=== PATIENT | female | born 1995 | race Caucasian/White ===

== ENCOUNTER 2020-11-05 00:09 | Emergency (ER) | payer SELFPAY ==
[2020-11-05] MEDS ORDERED: Cefdinir 300 MG Cap PO ONE (00:39)
[2020-11-05] MEDS ORDERED: Ondansetron 4 MG Tab.DIS PO ONE (01:02)
[2020-11-05] MEDS ORDERED: Phenazopyridine 200 MG Tab PO ONE (01:02)
--- NOTE | 2020-11-05 01:08 | EDM.PDOC ---
ED HPI GENERAL MEDICAL PROBLEM - General Chief Complaint: Genitourinary Problem Stated Complaint: POSSIBLE KIDNEY INFECTION Time Seen by Provider: 11/05/20 01:03 - History of Present Illness INITIAL COMMENTS - FREE TEXT/NARRATIVE: HISTORY AND PHYSICAL: History of present illness: This is a 25-year-old female with a history significant for kidney infection in the past presents ER today with signs symptoms similar to her prior urinary tract infections. Patient denies any recent fevers, shakes. Patient reports that she had an episode of a chills but no documented fever at that time. Patient denies any vomiting or diarrhea. Patient does complain of some nausea. Patient complains of dysuria frequency and urgency. Patient is currently on her menses. Patient denies any cough cold or rhinorrhea. Patient reports she is tolerating p.o. solids and liquids well. Patient reports that she started experiencing abdominal pain in the suprapubic region and she thought it was her typical pain from her menses however it is slowly migrated a bit closer to the left lower quadrant with the urinary symptoms. Review of systems: As per history of present illness and below otherwise all systems reviewed and negative. Past medical history: As per history of present illness and as reviewed below otherwise noncontributory. Surgical history: As per history of present illness and as reviewed below otherwise noncontributory. Social history: No reported history of drug abuse. Family history: As per history of present illness and as reviewed below otherwise noncontributory. Physical exam: This patient was seen and evaluated during the 2019 SARS-CoV-2 novel coronavirus pandemic period. Community viral transmission is ongoing at time of this encounter and the emergency department is operating under pandemic response procedures. Constitutional: Patient is oriented to person, place, and time. Appears well- developed and well-nourished. No distress. HEENT: Moist mucous membranes Head: Normocephalic and atraumatic Eyes: Right eye exhibits no discharge. Left eye exhibits no discharge. No scleral icterus Neck: Normal range of motion. No tracheal deviation present. Cardiovascular: Normal rate and regular rhythm. Pulmonary: Effort normal, no respiratory distress. Abd: Soft, nondistended, no rebound/guarding, no psoas or obturator signs, no tenderness at Mcberney's point, no Dial's sign. Pt does not present with an exam that would be consistent with an acute surgical abdomen at this time. Mild tenderness palpation left lower quadrant. Mild tenderness palpation left flank. Musculoskeletal: Normal range of motion Neurologic: Alert and oriented to person, place and time. Skin: [place], warm and dry. Psychiatric: Normal mood and affect. Behavior is normal. Judgment and thought content normal. Nursing note and vital signs have been reviewed Diagnostics: [] Therapeutics: Omnicef, Zofran, Pyridium Assessment and plan: 25-year-old female who presents ER today with signs and symptoms consistent with a likely urinary tract infection. I have discussed with the patient the possibility of kidney stone however her presentation is atypical for renal colic. Patient does not wish a CT scan at this time to avoid the radiation would prefer treatment with an antibiotic. We will start patient on Omnicef, Pyridium for discomfort as well as Zofran to help with nausea. Patient has t aken ibuprofen at home approximately 2 hours prior to arrival with some moderate relief. Patient is clinically and hemodynamically stable at this time for discharge to home with close outpatient follow-up. I have discussed with the patient that she does not start having improvement in her symptoms within 24 hours that she should return to the ER or go to her doctor for reevaluation and CT scan of her abdomen and pelvis to look at her kidneys. Reassessment at the time of disposition demonstrates that the patient is in no acute distress. The patient has remained stable throughout the entire ED visit and is without objective evidence for acute process requiring urgent intervention or hospitalization. The patient is stable for discharge, counseling is provided as documented above, discussed symptomatic treatment and specific conditions for return. I have spoken with the patient/caregiver and discussed todays findings, in addition to providing specific details for the plan of care. Questions are answered and there is agreement with the plan. Definitive disposition and diagnosis as appropriate pending reevaluation and review of above. Left Flank Pain Score (Numeric/FACES): 8 - Related Data Allergies Allergy/AdvReac Type Severity Reaction Status Date / Time Sulfa (Sulfonamide Allergy Swollen Verified 11/05/20 00:24 Antibiotics) Tongue Home Meds: Home Meds Cefdinir [Omnicef] 300 mg PO BID #14 cap 11/05/20 [Rx] Ibuprofen 600 mg PO Q6HR PRN #30 tablet 11/05/20 [Rx] Ondansetron [Zofran ODT] 4 mg PO Q6H PRN #12 tab.dis 11/05/20 [Rx] Phenazopyridine HCl [Pyridium] 200 mg PO TID #9 tablet 11/05/20 [Rx] Social & Family History - Tobacco Use Tobacco Use Status *Q: Never Tobacco User Second Hand Smoke Exposure: No - Recreational Drug Use Recreational Drug Use: No ED ROS GENERAL - Review of Systems Review Of Systems: See Below ED EXAM, GENERAL - Physical Exam Exam: See Below Course - Vital Signs Last Recorded V/S: Last Vital Signs Temp 96.8 F L 11/05/20 00:17 Pulse 90 11/05/20 00:17 Resp 16 11/05/20 00:17 BP 123/72 11/05/20 00:17 Pulse Ox 78 L 11/05/20 00:17 - Orders/Labs/Meds Orders: Active Orders 24 hr Category Date Time Status Ondansetron [Zofran ODT] Med 11/05/20 01:02 Once 4 mg PO ONETIME ONE Phenazopyridine [Pyridium] Med 11/05/20 01:02 Once 200 mg PO ONETIME ONE Labs: Laboratory Tests 11/05/20 11/05/20 Range/Units 00:20 00:20 Urine Color YELLOW Urine Appearance SLT CLOUDY Urine pH 6.0 (5.0-8.0) Ur Specific [place] <= 1.005 (1.001-1.035) Urine Protein NEGATIVE (NEGATIVE) mg/dL Urine Glucose (UA) NEGATIVE (NEGATIVE) mg/dL Urine Ketones NEGATIVE (NEGATIVE) mg/dL Urine Occult Blood LARGE H (NEGATIVE) Urine Nitrite NEGATIVE (NEGATIVE) Urine Bilirubin NEGATIVE (NEGATIVE) Urine Urobilinogen 0.2 (<2.0) EU/dL Ur Leukocyte Esterase LARGE H (NEGATIVE) Urine RBC 1-3 (0-2/HPF) Urine WBC 10-12 (0-5/HPF) Ur Epithelial Cells RARE (NONE-FEW) Urine Bacteria RARE (NEGATIVE) Urine HCG, Qual NEGATIVE (NEGATIVE) Meds: Medications Discontinued Medications Generic Name Dose Route Start Last Admin Trade Name Freq PRN Reason Stop Dose Admin Cefdinir 300 mg 11/05/20 00:39 Cefdinir 300 Mg Cap PO 11/05/20 00:40 ONETIME ONE Departure - Departure Time of Disposition: 01:06 Disposition: Home, Self-Care 01 Condition: Good Clinical Impression: UTI, Urinary tract infectious disease - Discharge Information Instructions: Urinary Tract Infection, Adult Referrals: PCP,None [Primary Care Provider] - Additional Instructions: You were seen and evaluated in the ER today with signs and symptoms consistent with a urinary tract infection. Your urinalysis does show that you have a urinary tract infection. You will get started on Omnicef 300 mg twice a day for 7 days as an antibiotic. You will be given Pyridium 200 mg to take 3 times a day for 2 days to help with your symptoms. This will turn the color of your urine orange. Please do not be alarmed about that. You will also be given a prescription for Zofran to help you with your nausea. Please make an appointment to see your doctor in the next 2 to 3 days. If your symptoms are not significantly improved in 24 hours, please return to the ER so that we can reevaluate you and get a CT scan of your kidneys. The following information is given to patients seen in the emergency department who are being discharged to home. This information is to outline your options for follow-up care. We provide all patients seen in our emergency department with a follow-up referral. The need for follow-up, as well as the timing and circumstances, are variable depending upon the specifics of your emergency department visit. If you don't have a primary care physician on staff, we will provide you with a referral. We always advise you to contact your personal physician following an emergency department visit to inform them of the circumstance of the visit and for follow-up with them and/or the need for any referrals to a consulting specialist. The emergency department will also refer you to a specialist when appropriate. This referral assures that you have the opportunity for follow-up care with a specialist. All of these measure are taken in an effort to provide you with optimal care, which includes your follow-up. Under all circumstances we always encourage you to contact your private physician who remains a resource for coordinating your care. When calling for follow-up care, please make the office aware that this follow-up is from your recent emergency room visit. If for any reason you are refused follow-up, please contact the [facility] Emergency Department at and asked to speak to the emergency department charge nurse. Irlanda Short [facility] [address] [place] [id number] [facility] [address] [place] [address] [place] [id number] Sepsis Event Note (ED) - Focused Exam Vital Signs: Vital Signs Temp Pulse Resp BP Pulse Ox 11/05/20 00:17 96.8 F L 90 16 123/72 78 L - My Orders Last 24 Hours: My Active Orders 11/05/20 01:02 Ondansetron [Zofran ODT] 4 mg PO ONETIME ONE Phenazopyridine [Pyridium] 200 mg PO ONETIME ONE - Assessment/Plan Last 24 Hours: My Active Orders 11/05/20 01:02 Ondansetron [Zofran ODT] 4 mg PO ONETIME ONE Phenazopyridine [Pyridium] 200 mg PO ONETIME ONE
== END 2020-11-05 01:15 | disposition home or self-care (01) ==
LOC: MW.ED 00:09
DX: N39.0 Urinary tract infection, site not specified (principal); Z88.2 Allergy status to sulfonamides
CPT/HCPCS: 81001; 81025; 99283; A9270

== ENCOUNTER 2021-08-15 05:04 | Inpatient (IN) | payer BC ==
[2021-08-15] MEDS ORDERED: Lidocaine 1% 50 ML MDV INJECT PRN (05:20)
[2021-08-15] MEDS ORDERED: Misoprostol 200 MCG Tab PO PRN (05:20)
[2021-08-15] MEDS ORDERED: Water For Irrigation,Sterile 1,000 ML Container IRR PRN (05:20)
[2021-08-15] MEDS ORDERED: Terbutaline 1 MG/ML SDV SUBCUT PRN (05:20)
[2021-08-15] MEDS ORDERED: Tranexamic Acid 1,000 MG in Sodium Chloride 0.9% 100 ML IV PRN (05:20)
[2021-08-15] MEDS ORDERED: Ondansetron 4 MG/2 ML SDV IVPUSH PRN (05:20)
[2021-08-15] MEDS ORDERED: Sodium Chloride 0.9% 20 ML SDV IV PRN (05:20)
[2021-08-15] MEDS ORDERED: Methylergonovine 0.2 MG/1 ML Amp IM PRN (05:20)
[2021-08-15] MEDS ORDERED: Carboprost Tromethamine 250 MCG/1 ML Amp IM PRN (05:20)
[2021-08-15] MEDS ORDERED: Sodium Chloride 0.9% 10 ML Syringe FLUSH PRN (05:20)
[2021-08-15] MEDS ORDERED: Sodium Chloride 0.9% 2.5 ML Syringe FLUSH PRN (05:20)
[2021-08-15] MEDS ORDERED: Oxytocin/0.9 % Sodium Chloride 30 UNIT/500 ML BAG IV SCH ×2 (05:30)
[2021-08-15] MEDS: Lactated Ringers 1,000 ML IV SCH ×3 (06:51→19:08)
[2021-08-15] MEDS ORDERED: Misoprostol 25 MCG (1/4 of 100 MCG) Tab VAG PRN (07:17)
[2021-08-15] MEDS: Butorphanol 1 MG/ML SDV IVPUSH PRN ×2 (10:26→12:39)
[2021-08-15] MEDS ORDERED: Ropivacaine in NACL,ISO-OSM/PF 400 ML ONE (15:27)
[2021-08-15] MEDS ORDERED: Ropivacaine in NACL,ISO-OSM/PF 800 MG in Premix Bag 1 BAG EPIDUR SCH ×2 (16:00)
[2021-08-15] MEDS ORDERED: ePHEDrine 50 MG/ML SDV IVPUSH PRN (16:00)
[2021-08-15] MEDS ORDERED: Benzocaine/Menthol 20%-0.5% Spray 78 GM Cannister TOP PRN (23:18)
[2021-08-15] MEDS ORDERED: Bisacodyl 10 MG Supp RECTAL PRN (23:18)
[2021-08-15] MEDS ORDERED: Docusate Sodium 100 MG Cap PO PRN (23:18)
[2021-08-15] MEDS ORDERED: Lanolin 100% Cream 7 GM Tube TOP PRN (23:18)
[2021-08-15] MEDS ORDERED: Witch Hazel Medicated Pads 40/Jar TOP PRN (23:18)
[2021-08-15] MEDS ORDERED: Ibuprofen 400 MG Tab PO PRN (23:18)
[2021-08-15] MEDS ORDERED: Acetaminophen 500 MG Tab PO PRN ×2 (23:18)
[2021-08-15] MEDS ORDERED: oxyCODONE 5 MG Tab PO PRN (23:18)
[2021-08-16] MEDS: Ibuprofen 800 MG Tab PO PRN ×2 (04:25→14:35)
[2021-08-17] MEDS: Ibuprofen 800 MG Tab PO PRN (05:36)
== END 2021-08-17 11:46 | disposition home or self-care (01) | DRG 560 ==
LOC: MW.OBCHECK 05:04 → MW.OB 05:05 → MW.OBCHECK 05:20 → OBSVTOIN 22:48 → MW.OB 08-16 01:55
PROVIDERS: ADMIT Obstetrics & Gynecology; ATTEND Obstetrics & Gynecology
PROC: 10E0XZZ Delivery of Products of Conception, External Approach (ICD-10-PCS; principal; 2021-08-15)
PROC: 3E0P7VZ Introduction of Hormone into Female Reproductive, Via Natural or Artificial Opening (ICD-10-PCS; 2021-08-15)
PROC: 3E0P7VZ Introduction of Hormone into Female Reproductive, Via Natural or Artificial Opening (ICD-10-PCS; 2021-08-15)
PROC: 00HU33Z Insertion of Infusion Device into Spinal Canal, Percutaneous Approach (ICD-10-PCS; 2021-08-15)
PROC: 0HQ9XZZ Repair Perineum Skin, External Approach (ICD-10-PCS; 2021-08-15)
PROC: 0UQMXZZ Repair Vulva, External Approach (ICD-10-PCS; 2021-08-15)
DX: O48.0 Post-term pregnancy (principal); Z37.0 Single live birth; Z3A.40 40 weeks gestation of pregnancy; O76 Abnormality in fetal heart rate and rhythm complicating labor and delivery; O69.81X0 Labor and delivery complicated by cord around neck, without compression, not applicable or unspecified; Z88.2 Allergy status to sulfonamides; Z86.16 Personal history of COVID-19; O70.0 First degree perineal laceration during delivery; O71.82 Other specified trauma to perineum and vulva; Z20.822 Contact with and (suspected) exposure to COVID-19
CPT/HCPCS: 36415; 51701; 51702; 59025; 59409; 59414; 80305-QW; 82803; 85014; 85018; 85027; 86592; 86850; 86900; 86901; A9270-GY; J0595; J2405; J2590; J2795; J3105; J7120; U0002